=== PATIENT | female | born 1955 | race Caucasian/White ===

== ENCOUNTER → 2016-08-12 | Outpatient (CLI) | payer OTHER ==
[~2016-08-12] MED LIST: ASA325 MG PO; CHOLESTOFF PLUS PO; MOTRIN-DPS800 MG PO; OYSTER SHELL C500 MG PO; PERCOCET 5-3251 EACH PO; RED YEAST RICE600 MG PO; THERA1 EACH PO
== END | disposition home or self-care (01) ==
LOC: RAD.S 12:47
DX: N95.0 Postmenopausal bleeding (principal); D25.9 Leiomyoma of uterus, unspecified